=== PATIENT | male | born 1965 | race Caucasian/White ===

== ENCOUNTER 2020-05-21 01:16 | Outpatient (CLI) | payer OTHER, SELFPAY ==
[2020-05-21 19:31] LABS: SARS-CoV-2 RNA PCR Negative
== END 2020-05-21 01:17 | disposition home or self-care (01) ==
LOC: ANHCOVIDDT 01:16
PROVIDERS: PCP Family Medicine; Visit Provider Internal Medicine Cardiovascular Disease
DX: Z01.818 Encounter for other preprocedural examination (principal); Z20.828 Contact with and (suspected) exposure to other viral communicable diseases
CPT/HCPCS: 87635; C9803; U0003

== ENCOUNTER 2020-05-31 01:06 | Outpatient (CLI) | payer OTHER, SELFPAY ==
[2020-05-31 19:42] LABS: SARS-CoV-2 RNA PCR Negative
== END 2020-05-31 01:07 | disposition home or self-care (01) ==
LOC: ANHCOVIDDT 01:06
PROVIDERS: PCP Family Medicine; Visit Provider Specialist
DX: Z01.812 Encounter for preprocedural laboratory examination (principal); Z20.822 Contact with and (suspected) exposure to COVID-19
CPT/HCPCS: C9803; U0003

== ENCOUNTER 2020-06-03 05:25 | Day surgery (SDC) | payer OTHER, SELFPAY ==
[2020-06-03] VITALS (9 sets, daily range): BP systolic 112–133; BP diastolic 66–85; PULSE 46–59; RESP 12–16; TEMP 35.2–36.6; O2SAT 95–98; BMI 26.9
[2020-06-03 09:26] LABS: Basophils Percent Auto 0.6 % (0.2-1.2); Eosinophils Absolute Auto 0.1 K/mm3 (0-0.3); Eosinophils Percent Auto 1.5 % (0-4.4); Hematocrit 38.3 % (42.0-52.0); Hemoglobin 13.5 g/dL (14.0-18.0); Immature Granulocyte Absolute 0.02 K/mm3 (0.00-0.031); Immature Granulocyte Percent A 0.3 % (0-0.5); Lymphocytes Absolute Auto 1.66 K/mm3 (0.9-3.2); Lymphocytes Percent Auto 24.7 % (18.3-44.2); Mean Corpuscular HGB Conc 35.2 g/dl (32-36); Mean Corpuscular Hemoglobin 31.8 pg (26-34); Mean Corpuscular Volume 90.3 fl (80-100); Mean Platelet Volume 9.2 fl (7.4-10.4); Monocytes Absolute Auto 0.8 K/mm3 (0.1-0.6); Monocytes Percent Auto 11.3 % (2.6-8.5); Neutrophils Absolute Auto 4.2 K/mm3 (1.3-6.7); Neutrophils Percent Auto 61.6 % (45.5-73.1); Platelet Count Result 358 k/mm3 (150-375); Red Blood Count 4.24 M/mm3 (4.6-6.20); Red Cell Distribution Width 12.4 % (11.5-14.5); White Blood Count 6.7 K/mm3 (4.5-10.0)
[2020-06-03 09:47] LABS: Anion Gap 4 mmol/L (8-16); Blood Urea Nitrogen 18 mg/dL (9-20); Calcium 9.4 mg/dL (8.4-10.2); Carbon Dioxide 32 mmol/L (22-30); Chloride 102 mmol/L (98-107); Estimated CRCL calculation 104 ml/min; Estimated Glomerular Filt Rate > 60; Glucose 110 mg/dL (75-110); Potassium 4.5 mmol/L (3.4-5.0); Sodium 138 mmol/L (137-145)
[2020-06-03 09:48] LABS: Prothrombin Time 13.6 Seconds (11.1-14.7)
--- NOTE | 2020-06-03 09:48 | SUR.PREOP ---
Patient arrives ambulatory to [facility] room 5. PIV initiated without difficulty and labs obtained and sent. VSS. Peripheral pulses assessed. Consent signed. Groins prepped. Patient updated on plan of care and verbalizes understanding. Will continue to closely monitor patient.
--- NOTE | 2020-06-03 11:08 | WPDMODSED ---
Moderate Sedation Note-Pt Data Patient Data Diagnosis: abnormal nuclear stress test atypical chest pain Present Complaint: this is a 54-year-old patient with a history of chest pain that seems to be atypical of angina. A nuclear stress test was done which was clinically negative at a high work load but had scintigraphic evidence of ischemia. Procedure to be performed/Plan: Left heart catheterization Allergies Allergy/AdvReac Type Severity Reaction Status Date / Time No Known Allergies Allergy Verified 06/03/20 09:44 Home Medications Medication Instructions Recorded Confirmed Type alprazolam 0.5 mg tablet 0.5 mg PO DAILY PRN #10 tablet 04/08/20 06/03/20 Rx finasteride 1 mg tablet 1 mg PO DAILY #30 tablet 04/08/20 06/03/20 Rx citalopram 40 mg tablet 40 mg PO DAILY #30 tablet 05/25/20 06/03/20 Rx Adults Multivitamin 1 tablet PO DAILY 06/03/20 06/03/20 History ascorbic acid (vitamin C) 1 tablet PO DAILY 06/03/20 06/03/20 History aspirin 81 mg PO DAILY 06/03/20 06/03/20 History trazodone 100 mg PO DAILY 06/03/20 06/03/20 History Current Medications: Active Medications Sodium Chloride (Normal Saline Iv) 500 mls @ 100 mls/hr IV CONT .Q5H YI Sedation/Anesthesia: No previous sedation/anesthesia problems (including family history). [facility] Family History Family History (Updated 01/21/14 @ 07:13 by DOCTOR UNKNOWN) Father Family history of coronary artery disease Social History Social History (Updated 04/08/20 @ 10:04 by Kirsten Sauceda MA) Years smoked: 3 Smoking status: Former smoker Smoking end date: 05/27/86 Alcohol intake: current Drinks per week: 10 Substance use: never Substance use type: does not use Gender identity (if verbalized by the patient): Male Mod Sed Physical Exam Physical Exam Pre Procedural Exam: Normal: Appearance, Neck, Throat, Airway, Lungs, Heart Size, Heart Rate, Heart Rhythm, Neuro Exam and Extremities Hours since solid foods: 12 Hours since liquid intake: 12 Internal Medicine - PN: Obj Da Vital Signs Vital Signs: Vital Signs - 24 hr 06/03/20 09:30 Temperature 35.2 C L Pulse Rate 54 L Respiratory Rate 12 Blood Pressure 133/79 Pulse Oximetry 98 Meds/Results Medications: Active Medications Generic Name Dose Route Start Last Admin Trade Name Jacek PRN Reason Stop Dose Admin Sodium Chloride 500 mls @ 100 mls/hr 06/03/20 02:15 Normal Saline Iv IV CONT .Q5H YI Labs CBC & Chem 7: 06/03/20 09:16 06/03/20 09:16 Labs: Laboratory Results - last 24 hr 06/03/20 06/03/20 06/03/20 09:16 09:16 09:16 WBC 6.7 RBC 4.24 L Hgb 13.5 L Hct 38.3 L MCV 90.3 MCH 31.8 MCHC 35.2 RDW 12.4 Plt Count 358 MPV 9.2 Immature Gran % (Auto) 0.3 Neut % (Auto) 61.6 Lymph % (Auto) 24.7 Blair % (Auto) 11.3 H Eos % (Auto) 1.5 Baso % (Auto) 0.6 Lymph # (Auto) 1.66 Blair # (Auto) 0.8 H Eos # (Auto) 0.1 Baso # (Auto) 0.0 Abs Immat Gran (auto) 0.02 Absolute Neuts (auto) 4.2 Absolute Nucleated RBC 0.0 Nucleated RBC % 0.0 PT 13.6 INR 1.0 Sodium 138 Potassium 4.5 Chloride 102 Carbon Dioxide 32 H Anion Gap 4 L BUN 18 Creatinine 0.70 Estim Creat Clear Calc 104 Estimated GFR > 60 Glucose 110 Calcium 9.4 ASA Classification/Sedation ASA Classification/Sedation Risks: Risks, benefits and alternatives explained and patient/family accepted plan for sedation. Patient re-evaluated immediately prior to sedation.
--- NOTE | 2020-06-03 11:39 | P.PCNCC_ITS ---
Cardiac Cath Procedure Note Date of procedure:: 06/03/20 Performing physician:: Eligio Carey MD Indication:: atypical chest pain abnormal stress test Brief clinical history:: this is a 54-year-old patient with no previous history of heart disease who is been having intermittent chest pain and had a stress test performed in the office which was clinically and electrocardiographically negative but since there was scintigraphic evidence of ischemia. Procedure Procedure performed:: Left ventriculography coronary angiography Angio-Seal to right femoral artery Sedation/Medication given:: fentanyl 50 mg Versed 2 mg case start time 11:25 a.m. case end time 11:39 a.m. sedation provided by Loreta Moreno RN, trained observer Access site:: right femoral artery Estimated blood loss:: 10-15 cc Procedure note:: patient was brought to the cardiac catheterization lab in the postabsorptive state where the right femoral triangle was prepared and draped in the usual fashion. Anesthesia was provided with 1% lidocaine infiltrated locally. Using the modified Seldinger technique a 5 Taiwanese sheath was placed into the femoral artery. After this left heart catheterization was carried out. I used a 5 Taiwanese angled pigtail catheter to document left-sided hemodynamics and pullback pressures across the aortic valve. This was also used to inject the LV in the 30 degree WOO projection. Following this the left coronary artery was engaged and injected using a 5 Taiwanese FL4 catheter. The right coronary was engaged and injected using a standard 5 Taiwanese JR4 catheter. The cine angiograms were then reviewed and the case was terminated. An angiogram was done of the femoral artery through the sheath after which an Angio-Seal device was deployed with a good hemostatic result. Procedure was uncomplicated he left the labor relations officer with no evidence of a groin hematoma. Findings:: Hemodynamics: Central aortic pressure is 146/74 left ventricle 146 over to end-diastolic 15. There is no gradient across the aortic valve upon pullback. Left ventricle: The LV is of normal size all segments contract appropriately the global ejection fraction is 50-55% by visual estimation. The left main coronary artery is a long large in caliber and angiographically normal. The left anterior descending is a medium caliber artery extends down to the apex the LAD and its branches are angiographically normal. The circumflex is a medium caliber artery giving rise to the marginal branches the circumflex system is angiographically normal. The right coronary artery is large in caliber and dominant to the posterior circulation the right coronary artery is angiographically normal. Conclusion:: 1. Right coronary dominant circulation with no angiographic evidence of coronary disease 2. normal left ventricular systolic function 3. successful Angio-Seal of right femoral artery Eligio Carey MD [facility]
--- NOTE | 2020-06-03 11:53 | SUR.PHASEII ---
BEGIN PHASE II RECOVERY. RETURNS TO PATIENT ACCESS ASSOCIATE 4 S/P [facility] W/ DR. TORRES. ANGIOSEAL CLOSURE TO R. FEM ARTERY PUNCTURE. SITE SOFT, NONTENDER, NO BLEEDING OR HEMATOMA NOTED. DRESSING TO SITE C/D/I. R. PEDAL AND POST TIB PULSE PALP EASILY. IVF'S INFUSING ORDERED. BEDREST X 2 HOURS ORDERED. REVIEWED BEDREST ACTIVITY RESTRICTIONS W/ PT. VOICED UNDERSTANDING. VSS. MONITOR SB 50'S. WILL MONITOR.
--- NOTE | 2020-06-03 14:00 | SUR.PHASEII ---
BEDREST X 2 HOURS COMPLETE. NOW UP TO BATHROOM AND TO CHAIR AT BEDSIDE. TOLERATED WELL. STEADY GAIT. NO CHANGE IN R. GROIN SITE. DENIES PAIN OR SOB. VSS. WILL CONTINUE TO MONITOR.
--- NOTE | 2020-06-03 16:40 | SUR.PHASEII ---
END PHASE II RECOVERY. REVIEWED ALL DISCHARGE INSTRUCTIONS W/ PT. ALL QUESTIONS ANSWERED. VOICED UNDERSTANDING OF ALL. NO CHANGE IN R. GROIN SITE OR R. PEDAL PULSE. STEADY. VSS. DISCHARGED HOME, OUT VIA WC TO 'S WAITING CAR W/ ALL PERSONAL BELONGINGS AND DISCHARGE PACKET. NO DISTRESS NOTED. NO C/O VOICED.
== END 2020-06-03 16:40 | disposition home or self-care (01) ==
PROVIDERS: PCP Family Medicine; Visit Provider Specialist
PROC: 4A023N7 Measurement of Cardiac Sampling and Pressure, Left Heart, Percutaneous Approach (ICD-10-PCS; CPT 93452; principal; 2020-06-03 10:00)
DX: R94.39 Abnormal result of other cardiovascular function study (principal); R07.89 Other chest pain; Z79.82 Long term (current) use of aspirin; Z87.891 Personal history of nicotine dependence
CPT/HCPCS: 36415; 80048; 85025; 85610; 93458; C1760; C1887; C1894; C9803; G0269; J0461; J1644; J2250; J3010; U0003

== ENCOUNTER → 2021-04-06 10:04 | Outpatient (CLI) | payer OTHER, SELFPAY ==
--- NOTE | ~2021-04-06 | XR_ITS ---
XR wrist RT 2V, XR hand RT min 3V 04/06/2021 10:34 Indication: Polyarticular joint pain Procedure: 2 views of the right wrist and 3 views right hand Comparison: No prior studies for comparison. Findings: There is polyarticular osteoarthritis of the radiocarpal, triscaphe and first CMC joints. N o acute fracture or traumatic malalignment. There are mild degenerative changes of the first MCP and IP joints. No erosive changes. No focal soft tissue abnormality. No foreign bodies. Impression: 1: Mild polyarticular osteoarthritis. Reviewed, dictated and finalized at location A. R ANALYST Impression: 1: Mild polyarticular osteoarthritis. Impression: 1: Mild polyarticular osteoarthritis.
--- NOTE | ~2021-04-06 | XR_ITS ---
EXAMINATION: XR foot RT min 3V EXAM DATE: 04/06/2021 10:34 INDICATION: Right foot pain, 2nd digit toe discoloration and medial side of 1st MTP. TECHNIQUE: Right foot dorsoplantar, lateral and oblique projections obtained and reviewed. There is no prior study for comparison. FINDINGS: Right metatarsal bones unremarkable. Possible old 4th proximal phalangeal base fracture. There is mild 1st metatarsophalangeal primary osteoarthritis. There are no bony erosions identified. There are no acute actually did not take a did not take fractures or dislocations identified. There is no subcutaneous gas. The soft tissue is unremarkable. There are no radiopaque foreign bodies. IMPRESSION: Mild right 1st MTP osteoarthritis. Reviewed, dictated and finalized at location A. CY ADVISOR
--- NOTE | ~2021-04-06 | XR_ITS ---
EXAMINATION: XR foot LT min 3V EXAM DATE: 04/06/2021 10:34 INDICATION: Pain in Left Foot, no recent injury reported. LT plantar surface foot pain near distal 2n d and 3rd metatarsals. TECHNIQUE: Left foot dorsoplantar, lateral and oblique projections obtained and reviewed. There is n o prior study for comparison. FINDINGS: Left metatarsal bones unremarkable. There are no acute left ankle fractures or dislocatio ns identified. There is no subcutaneous gas. The soft tissue is unremarkable. There are no radiop aque foreign bodies. There is minimal 1st metatarsophalangeal joint primary osteoarthritis. IMPRESSION: Minimal left 1st MTP osteoarthritis. Reviewed, dictated and finalized at location A. L GRINDER
== END ==
PROVIDERS: PCP Family Medicine; Visit Provider Physician Assistant
DX: M19.071 Primary osteoarthritis, right ankle and foot (principal); M19.072 Primary osteoarthritis, left ankle and foot; M19.041 Primary osteoarthritis, right hand; M19.042 Primary osteoarthritis, left hand
CPT/HCPCS: 73100; 73130; 73630